=== PATIENT | male | born 1935 | race Asian ===

== ENCOUNTER 2022-04-09 10:37 | Emergency (ER) | payer MEDICARE, OTHER, SELFPAY ==
[2022-04-09] VITALS (32 sets, daily range): BP systolic 102–125; BP diastolic 59–71; PULSE 78–87; RESP 0–20; TEMP 36; O2SAT 93–97; BMI 21.7
--- NOTE | 2022-04-09 10:39 | CTR_ITS ---
PROCEDURE INFORMATION: Exam: CT Head Without Contrast Exam date and time: 04/09/2022 10:56 AM Age: 86 years old Clinical indication: Altered mental status/memory loss and malaise or fatigue; Age related cognitive decline; Additional info: AMS TECHNIQUE: Imaging protocol: Computed tomography of the head without contrast. Radiation optimization: All CT scans at this facility use at least one of these dose optimization techniques: automated exposure control; mA and/or kV adjustment per patient size (includes targeted exams where dose is matched to clinical indication); or iterative reconstruction. Other protocol: This patient has received 0 known CTs and 0 known cardiac nuclear medicine studies in the 12 months prior to the current study. COMPARISON: CT head performed December 17, 2017 RADIATION DOSE METRICS: Total DLP (mGy-cm): 1164.8 FINDINGS: Brain: There is no evidence of intracranial hemorrhage. There are no areas of mass effect edema or midline shift. There is age-related cerebral volume loss with accompanying cortical atrophy slightly progressed from previous exam. There are diffuse areas of decreased attenuation periventricular white matter mildly progressed from previous exam in part secondary to chronic microvascular changes. 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 Cerebral ventricles: There is moderate generalized ventricular dilatation mildly progressed from previous exam likely in part secondary to cerebral volume loss with superimposed communicating hydrocephalus (NPH) to be excluded. Paranasal sinuses: Visualized sinuses are unremarkable. No fluid levels. Mastoid air cells: Visualized mastoid air cells are well aerated. Bones/joints: Unremarkable. No acute fracture. Soft tissues: Unremarkable. CT/CT head wo con* [id number] IMPRESSION: 1. No acute intracranial abnormalities. 2. Age-related cerebral volume loss mildly progressed from previous exam with superimposed communicating hydrocephalus (NPH) to be excluded.
--- NOTE | 2022-04-09 10:40 | XR_ITS ---
WS: [id number] Portable AP supine chest, 04/09/2022 Clinical Data: dyspnea/cough Comparison: Portable chest, 12/17/2017 Findings: No nodules, masses or effusions are seen. The heart is normal. The pulmonary vascularity is not increased. No pneumonia or pneumothorax is seen. The aortic arch show tortuosity. Monitor leads are on the chest wall. XR/XR chest 1V portable [id number] Impression: Atherosclerosis.
--- NOTE | 2022-04-09 10:48 | ECG_ITS ---
[facility] Test Date: 2022-04-09 Pat Name: Con Kendall Department: Room: Gender: Male Associate Media Planner: : 1935 Requested By: Alexys He Order Number: [id number] Jef MD: Ariel Briones M.D. Measurements Intervals [place] Rate: 85 P: 47 [place]: 205 QRS: 40 QRSD: 75 T: 55 QT: 339 QTc: 404 Interpretive Statements SINUS RHYTHM ST ELEVATION, CONSIDER INFERIOR INJURY [MARKED ST ELEVATION W/O NORMALLY INFLECTED T-WAVE IN II/aVF] ACUTE NE Compared to ECG 12/17/2017 23:31:04 ST (T wave) deviation now present Myocardial infarct finding now present Electronically Signed On 04-09-2022 13:07:15 PLASTIC MIXER by Ariel Briones M.D. [id number]
[2022-04-09 10:54] LABS: Basophils % 0.1 %; Eosinophils # 0.2 10^3/uL (0.0-0.8); Eosinophils % 1.9 %; Hematocrit 36.2 % (42.0-52.0); Hemoglobin 12.1 g/dL (11.7-16.6); Lymphocytes # 1.2 10^3/uL (0.8-4.8); Lymphocytes % 15.2 %; Mean Corpuscular HGB Conc 33.4 g/dL (30.0-36.0); Mean Corpuscular Hemoglobin 32.5 pg (28.0-34.0); Mean Corpuscular Volume 97.3 fl (80-94); Mean Platelet Volume 9.8 fL (7.4-10.4); Monocytes # 1.3 10^3/uL (0.2-0.9); Monocytes % 15.8 %; Neutrophils # 5.36 10^3/uL (1.8-7.7); Neutrophils % 66.5 %; Nucleated Red Blood Cells % 0 %; Platelet Count 228 10^3/cmm (130-400); Red Blood Count 3.72 10^6/uL (4.1-5.3); Red Cell Distribution Width 12.7 % (12.1-15.1); White Blood Count 8.1 10^3/uL (4.0-10.0)
--- NOTE | 2022-04-09 10:54 | PC.NURSE ---
Patient's states that the patient has dementia and that it is difficult to communicate with him. When asked the patient's name, , where and when. The patient only shook his head yes. Per the , the patient is able to ambulate normally with assistance. Patient is hard to wake up today and all he want's to do is sleep.
[2022-04-09 11:07] LABS: Alanine Aminotransferase 9 U/L (0-41); Albumin Level 3.7 g/dL (3.5-5.2); Alkaline Phosphatase 68 U/L (40-130); Anion Gap 15.4 (5-19); Aspartate Amino Transferase 12 U/L (0-40); Blood Urea Nitrogen 22 mg/dL (8-23); Calcium 9.1 mg/dL (8.5-10.5); Carbon Dioxide 26 mmol/L (22-29); Chloride 97 mmol/L (98-107); Globulin 2.7 g/dL (1.3-4.6); Glucose 149 mg/dL (65-115); Osmolality Calculated 284 mOsm/kg (285-295); Potassium 4.4 mmol/L (3.5-5.1); Sodium 134 mmol/L (136-145); Total Bilirubin 1.1 mg/dL (0.15-1.2); Total Protein 6.4 g/dL (6.6-8.7)
[2022-04-09 11:08] LABS: Troponin(5th) Baseline 44 ng/L (0-15)
[2022-04-09 11:29] LABS: Lactic Sepsis W/Reflex 1.3 mmol/L (0.5-2.2)
[2022-04-09 11:34] LABS: Bilirubin Urine Neg (Negative); Blood Urine Trace (Negative); Glucose Urine UA Norm (Normal); Ketones Urine Negative (Negative); Nitrate Urine Negative (Negative); Protein Urine 1+ (Negative); Urine Appearance Clear (CLEAR); Urine Color Yellow (Yellow); Urobilinogen Urine Neg (Negative); pH Urine 5 (5-7)
[2022-04-09 11:35] LABS: Add Urine Microscopic? YES; Leukocyte Esterase Urine Negative (Negative)
[2022-04-09 11:41] LABS: Blood Gas Allen Test Pos; Blood Gas Sample Site Radial, left; Blood Gas Sample Type Arterial; Carboxyhemoglobin < 1.0 %THgb (0.4-20.1); Ionized Calcium Level - ABG 1.2 mmol/L (1.1-1.4); Methemoglobin 0.4 % (0.4-1.5)
[2022-04-09 11:42] LABS: ABG PCO2 45.1 mmHg (35-45); ABG PH Result 7.41 (7.35-7.45); Alveolar-Arterial Oxygen Gradi 4.1 mmHg (5-10); Arterial Blood Gas Hematocrit 37.7 % (42-52); Base Excess ABG 3.3 mmol/L (-2.0-2.0); Blood Gas Operator Identificat Anonymous; HCO3 ABG 28.6 mmol/L (22-26); HGB O2 Sat 91.4 % (95-100); Oxygen Saturation ABG 92.1; PO2 ABG 66.3 mmHg (80.0-100.0); Potassium Level - ABG 4.1 mmol/L (3.5-5.0); Total Hemoglobin 12.3 g/dL (14-18)
[2022-04-09 11:44] LABS: RBC Urine 0-4 /hpf (0-2)
[2022-04-09 11:45] LABS: Add Urine Culture? No; Amorphous Sediment Urine 2+ /hpf
--- NOTE | 2022-04-09 11:52 | W.ED.GENADLT ---
HPI - General Adult General: Chief complaint: Altered Mental Status Stated complaint: AMS Time Seen by Provider: 04/09/22 10:38 Source: family and EMS Mode of arrival: EMS History of Present Illness: 86-year-old male presents emergency room with altered mental status. His tried to wake him up this morning he was unarousable. Patient is not able answer any questions. He has significant baseline dementia he normally is not verbal he is not complaining of anything in particular no abdominal or chest pain. In the last few years his health has significantly declined. His states he did not want any aggressive interventions done his initial EKG there is a question of ST elevation on his EKG his states that they would not want to pursue any cardiac catheterization given his age and overall condition. Onset (ago): hour(s) Relieving factors: none Exacerbating factors: none Review of Systems General: Reports: ROS unobtainable due to mental status [facility] ED PFSH: Medical History (Updated 04/09/22 @ 15:24 by Alexys Stoll DO) Dementia Diabetes HTN (hypertension) Social History (Updated 04/09/22 @ 11:53 by Alexys Stoll DO) Smoking and tobacco status: never smoked Alcohol intake: never Physical Exam HENMT: COMMON NORMALS: normocephalic and atraumatic HEAD & SCALP: normocephalic and atraumatic Resp: COMMON NORMALS: normal respiratory effort, No retractions, No use of accessory muscles and clear to auscultation bilaterally AUSCULTATION: clear to auscultation bilaterally Cardio: COMMON NORMALS: regular rate, regular rhythm and No murmurs present (Cardio) RATE: regular rate RHYTHM: regular rhythm GI: COMMON NORMALS: Soft to palpation and No hepatosplenomegaly present AUSCULTATION: Yes normoactive bowel sounds PALPATION: Yes Soft to palpation, No Tenderness to palpation present (GI), No Guarding due to palpation present (GI) and Yes No hepatosplenomegaly present Extremity: COMMON NORMALS: normal to inspection, capillary refill normal, no clubbing, cyanosis or edema, no calf tenderness and no pedal edema Skin: COMMON NORMALS: no rashes or lesions noted GENERAL SKIN EXAM: no rashes or lesions noted Course Vital Signs: Vital signs: Vital Signs Temperature 96.8 F L 04/09/22 10:39 Pulse Rate 80 04/09/22 18:00 Respiratory Rate 17 04/09/22 18:00 Blood Pressure 125/70 04/09/22 18:00 Pulse Oximetry 96 04/09/22 18:00 Oxygen Delivery Me thod 04/09/22 10:39 MDM - General Adult Medical Decision Making 86-year-old male with history of dementia with altered mental status. Last couple days has been worsening. He did have some EKG changes are very subtle he is not related any chest pain. I discussed with the they do not wish to proceed with any kind of intervention angiography etc. She would prefer to just take him home her biggest concern is that she is unable to care for him at home physically move him he had fallen a couple days ago and laid on the floor for 3 days she had brought up what she could to help him on the floor. She is requesting a hospital bed and to be discharged. Convinced her to enroll in hospice. We will be able to get the hospice but will bed also to get adequate assistance for end-of-life cares and her children who she contacted on the phone are agreeable. Medical Records I reviewed the patient's medical records. Lab Data I reviewed the patient's lab results. 04/09/22 10:40 04/09/22 10:[address] 04/09/22 10:39 IMPRESSION: 1. No acute intracranial abnormalities. 2. Age-related cerebral volume loss mildly progressed from previous exam with superimposed communicating hydrocephalus (NPH) to be excluded. Chest X-Ray 04/09/22 10:40 Impression: Atherosclerosis. Laboratory Results WBC 8.1 10^3/uL (4.0-10.0) 04/09/22 10:40 RBC 3.72 10^6/uL (4.1-5.3) L 04/09/22 10:40 Hgb 12.1 g/dL (11.7-16.6) 04/09/22 10:40 Hct 36.2 % (42.0-52.0) L 04/09/22 10:40 MCV 97.3 fl (80-94) H 04/09/22 10:40 MCH 32.5 pg (28.0-34.0) 04/09/22 10:40 MCHC 33.4 g/dL (30.0-36.0) 04/09/22 10:40 RDW 12.7 % (12.1-15.1) 04/09/22 10:40 Plt Count 228 10^3/cmm (130-400) 04/09/22 10:40 MPV 9.8 fL (7.4-10.4) 04/09/22 10:40 Neut % (Auto) 66.5 % 04/09/22 10:40 Lymph % (Auto) 15.2 % 04/09/22 10:40 [place] % (Auto) 15.8 % 04/09/22 10:40 Eos % (Auto) 1.9 % 04/09/22 10:40 Baso % (Auto) 0.1 % 04/09/22 10:40 Neut # (Auto) 5.36 10^3/uL (1.8-7.7) 04/09/22 10:40 Lymph # (Auto) 1.2 10^3/uL (0.8-4.8) 04/09/22 10:40 [place] # (Auto) 1.3 10^3/uL (0.2-0.9) H 04/09/22 10:40 Eos # (Auto) 0.2 10^3/uL (0.0-0.8) 04/09/22 10:40 Baso # (Auto) 0.0 10^3/uL (0.0-0.1) 04/09/22 10:40 Nucleated RBC % (auto) 0 % 04/09/22 10:40 Nucleated RBCs # 0.0 /100WBC 04/09/22 10:40 Specimen Type Arterial 04/09/22 11:29 Sample Site Radial, left 04/09/22 11:29 ABG pH 7.41 (7.35-7.45) 04/09/22 11:29 ABG pCO2 45.1 mmHg (35-45) H 04/09/22 11:29 ABG pO2 66.3 mmHg (80.0-100.0) L 04/09/22 11:29 ABG HCO3 28.6 mmol/L (22-26) H 04/09/22 11:29 ABG O2 Saturation 92.1 04/09/22 11:29 ABG Base Excess 3.3 mmol/L (-2.0-2.0) H 04/09/22 11:29 Roberto Test Pos 04/09/22 11:29 A-a O2 Gradient 4.1 mmHg (5-10) L 04/09/22 11:29 Hematocrit 37.7 % (42-52) L 04/09/22 11:29 Hgb O2 Saturation 91.4 % (95-100) L 04/09/22 11:29 Carboxyhemoglobin < 1.0 %THgb (0.4-20.1) 04/09/22 11:29 Methemoglobin 0.4 % (0.4-1.5) 04/09/22 11:29 Total Hemoglobin 12.3 g/dL (14-18) L 04/09/22 11:29 Sodium 135.0 mmol/L (131-143) 04/09/22 11:29 Potassium 4.1 mmol/L (3.5-5.0) 04/09/22 11:29 Glucose 148.0 mg/dL (70-115) H 04/09/22 11:29 Ionized Calcium 1.2 mmol/L (1.1-1.4) 04/09/22 11:29 O2 Delivery Device 04/09/22 11:29 FiO2 21.0 % 04/09/22 11:29 Technician Trainee ID Anonymous 04/09/22 11:29 Sodium 134 mmol/L (136-145) L 04/09/22 10:40 Potassium 4.4 mmol/L (3.5-5.1) 04/09/22 10:40 Chloride 97 mmol/L (98-107) L 04/09/22 10:40 Carbon Dioxide 26 mmol/L (22-29) 04/09/22 10:40 Anion Gap 15.4 (5-19) 04/09/22 10:40 BUN 22 mg/dL (8-23) 04/09/22 10:40 Creatinine 1.3 mg/dL (0.7-1.2) H 04/09/22 10:40 GFR Calculation Not Reportable 04/09/22 10:40 Glucose 149 mg/dL (65-115) H 04/09/22 10:40 Calculated Osmolality 284 mOsm/kg (285-295) L 04/09/22 10:40 Lactic Acid 1.3 mmol/L (0.5-2.2) 04/09/22 11:07 Calcium 9.1 mg/dL (8.5-10.5) 04/09/22 10:40 Total Bilirubin 1.1 mg/dL (0.15-1.2) 04/09/22 10:40 AST 12 U/L (0-40) 04/09/22 10:40 ALT 9 U/L (0-41) 04/09/22 10:40 Alkaline Phosphatase 68 U/L (40-130) 04/09/22 10:40 Ammonia 39 umol/L (16-60) 04/09/22 11:40 Troponin T Baseline 44 ng/L (0-15) H 04/09/22 10:40 Troponin T 120 Minute 37.39 ng/L (0-15) H 04/09/22 13:18 Delta Troponin T -6.61 ABS# (0-10) L 04/09/22 13:18 Total Protein 6.4 g/dL (6.6-8.7) L 04/09/22 10:40 Albumin 3.7 g/dL (3.5-5.2) 04/09/22 10:40 Globulin 2.7 g/dL (1.3-4.6) 04/09/22 10:40 Urine Color Yellow (Yellow) 04/09/22 11:25 Urine Appearance Clear (CLEAR) 04/09/22 11:25 Urine pH 5 (5-7) 04/09/22 11:25 Ur Specific [place] 1.010 (1.005-1.030) 04/09/22 11:25 Urine Protein 1+ (Negative) H 04/09/22 11:25 Urine Glucose (UA) Norm (Normal) 04/09/22 11:25 Urine Ketones Negative (Negative) 04/09/22 11:25 Urine Blood Trace (Negative) H 04/09/22 11:25 Urine Nitrate Negative (Negative) 04/09/22 11:25 Urine Bilirubin Neg (Negative) 04/09/22 11:25 Urine Urobilinogen Neg mg/dL (Negative) 04/09/22 11:25 Ur Leukocyte Esterase Negative (Negative) 04/09/22 11:25 Urine RBC 0-4 /hpf (0-2) H 04/09/22 11:25 Urine WBC None /hpf (0-5) 04/09/22 11:25 Ur Squamous Epith Cells None /hpf (0-5) 04/09/22 11:25 Amorphous Sediment 2+ /hpf 04/09/22 11:25 Urine Bacteria None /hpf (NONE) 04/09/22 11:25 Discharge Plan Discharge Patient Disposition: Home Clinical Impression: Altered mental status, Dementia, HTN (hypertension), Diabetes Prescriptions: New morphine concentrate 100 mg/5 mL (20 mg/mL) Solution 20 mg sublingual DIRECTED MDD N/A PRN (Reason: Pain/SOB) 14 Days Qty: 30 0RF Rx Instructions: 0.25ml-1ml q1H PRN may increase to 0.5ml-1ml Q1H PRN Dulcolax (bisacodyl) 10 mg Suppository 10 mg WI DAILY PRN (Reason: Constipation) Qty: 5 0RF Rx Instructions: 1 suppository per rectum every day PRN for constipation. atropine 1 % Drops 4 drp sublingual Q4H PRN (Reason: Secretions) Qty: 5 0RF Rx Instructions: 4 drops SL q 4 hours PRN for terminal congestion/excessive secretions. ondansetron 4 mg Tablet,Disintegrating 4 mg translingual Q4H PRN (Reason: Nausea) Qty: 5 0RF Rx Instructions: Dissolve 1 tablet under tongue every 4 hours PRN for nausea lorazepam 2 mg/mL Concentrate 2 mg sublingual Q4H PRN (Reason: Anxiety/Seizure) Qty: 30 0RF Rx Instructions: 0.25ml-1ml q4H PRN Anxiety/Seizure Start 0.25ml may increase to 0.5ml-1ml q4H Discontinued metformin 850 mg tablet 850 mg PO BID ascorbic acid (vitamin C) [Vitamin C] 500 mg Tablet 500 mg PO DAILY losartan 25 mg Tablet 25 mg PO DAILY vitamin B complex Tablet 1 tab PO DAILY memantine 10 mg tablet 5 mg PO BID Men's 50 Plus Multivitamin 400-20-370 mcg Tablet 1 tab PO DAILY No Action ondansetron 4 mg tablet,disintegrating 4 mg translingual Q4H PRN (Reason: nausea) Qty: 5 0RF Rx Instructions: Dissolve 1 tablet under tongue every 4 hours PRN for nausea lorazepam 2 mg/mL concentrate 2 mg sublingual Q4H PRN (Reason: Anxiety/Seizure) Qty: 30 0RF Rx Instructions: 0.25ml-1ml q4H PRN Anxiety/Seizure Start 0.25ml may increase to 0.5ml-1ml q4H bisacodyl 10 mg suppository 10 mg [place] DAILY PRN (Reason: constipation) Qty: 5 0RF Rx Instructions: 1 suppository per rectum every day PRN for constipation. atropine 1 % drops 4 drp sublingual Q4H PRN (Reason: secretions) Qty: 5 0RF Rx Instructions: 4 drops SL q 4 hours PRN for terminal congestion/excessive secretions. morphine concentrate 100 mg/5 mL (20 mg/mL) solution 20 mg sublingual DIRECTED PRN (Reason: Pain/SOB) 14 Days Qty: 30 0RF Rx Instructions: 0.25ml-1ml q1H PRN may increase to 0.5ml-1ml Q1H PRN metoprolol succinate 50 mg tablet extended release 24 hr 50 mg PO DAILY Discharge Orders: Discharge ED (Routine); Ordered 04/09/22 Ordered By: Alexys Stoll Discharge Diet: Advance as tolerated Patient Instructions: Opioid Safety, Pain Management Activity Restrictions/Additional Instructions: You were seen today for altered mental status. After consultation with your family it was decided due to your previously expressed wishes and your underlying medical problems they declined admission to the hospital and we made arrangements for hospice care at home. Significant alterations were made to your medication list please note medication list attached to the discharge instructions hospice will assist you with cares at home. You are welcome to return at any time if you wish. Coding Level of Care Code ED Teaching Supervisor for [place] Fwd Exam Detailed
[2022-04-09 12:31] LABS: Ammonia 39 umol/L (16-60)
--- NOTE | 2022-04-09 12:40 | ECG_ITS ---
[facility] Test Date: 2022-04-09 Pat Name: Con Kendall Department: Room: Gender: Male Business Banker: : 1935 Requested By: Alexys He Order Number: [id number] Jef MD: Ariel Briones M.D. Measurements Intervals [place] Rate: 84 P: 55 [place]: 211 QRS: 55 QRSD: 85 T: 62 QT: 346 QTc: 410 Interpretive Statements SINUS RHYTHM WITH FIRST DEGREE AV BLOCK WITH OCCASIONAL SUPRAVENTRICULAR PREMATURE COMPLEXES Compared to ECG 04/09/2022 10:48:11 First degree AV block now present ST (T wave) deviation no longer present Myocardial infarct finding no longer present Electronically Signed On 04-09-2022 23:28:44 RESOURCE PROTECTION SPECIALIST by Ariel Briones M.D. [id number]
[2022-04-09 13:43] LABS: Troponin 5 2HR 37.39 ng/L (0-15)
[2022-04-09 13:48] LABS: Troponin 5 2HR Delta -6.61 ABS# (0-10)
--- NOTE | 2022-04-09 14:16 | DCPLANNER ---
plant quality manager was asked to speak with patient and his about getting patient signed up for hospice. plant quality manager spoke with patients , she stated that she would like to get hospice set up for patient. Patients stated that she would like to go with [facility]. plant quality manager called [facility], spoke with William, gave hospice patients information. Someone from hospice will come to the hospital and speak with patient and patients about hospice services.
--- NOTE | 2022-04-09 16:40 | ECG_ITS ---
[facility] Test Date: 2022-04-09 Pat Name: Con Kendall Department: Room: Gender: Male Ceo & Co Founder: : 1935 Requested By: Alexys He Order Number: [id number] Jef MD: Ariel Briones M.D. Measurements Intervals [place] Rate: 81 P: 51 [place]: 203 QRS: 49 QRSD: 74 T: 63 QT: 344 QTc: 401 Interpretive Statements SINUS RHYTHM ST ELEVATION, CONSIDER INFERIOR INJURY [MARKED ST ELEVATION W/O NORMALLY INFLECTED T-WAVE IN II/aVF] ACUTE AL Compared to ECG 04/09/2022 13:04:57 ST (T wave) deviation now present Myocardial infarct finding now present First degree AV block no longer present Electronically Signed On 04-09-2022 23:28:27 CONCRETE PUDDLER by Ariel Briones M.D. [id number]
== END 2022-04-09 18:33 | disposition home or self-care (01) ==
PROVIDERS: Emergency Provider Family Medicine
DX: R41.82 Altered mental status, unspecified (principal); F03.90 Unspecified dementia, unspecified severity, without behavioral disturbance, psychotic disturbance, mood disturbance, and anxiety; I10 Essential (primary) hypertension; E11.9 Type 2 diabetes mellitus without complications
CPT/HCPCS: 36415; 36600; 51701; 70450; 71045; 80051; 80053; 81001; 82140; 82330; 82805; 83605; 84484; 85025; 93005; 99285

== ENCOUNTER 2022-05-25 12:40 | Outpatient (CLI) | payer OTHER, SELFPAY ==
[2022-05-25 13:12] LABS: SARS Covid-2 Antigen negative (Negative)
== END 2022-05-25 12:41 | disposition home or self-care (01) ==
PROVIDERS: Visit Provider Internal Medicine
DX: R06.02 Shortness of breath (principal)
CPT/HCPCS: 87426